=== PATIENT | female | born 1955 | race Caucasian/White ===

== ENCOUNTER 2016-12-21 13:01 | Emergency (ER) | payer BC ==
--- NOTE | 2016-12-21 14:21 | UC ---
Respiratory Complaint HPI - HPI Summary HPI Summary: Dx with pneumonia and rx with zithromax----has had no improvement in symptoms - History of Current Complaint Chief Complaint: UCRespiratory Stated Complaint: COUGH, AND CHEST CONGESTION Time Seen by Provider: 12/21/16 14:15 Hx Obtained From: Patient ?: No Onset/Duration: Gradual Onset, Lasting Weeks, Still Present Timing: Constant Severity Initially: Moderate Severity Currently: Moderate Character: Cough: Productive Aggravating Factors: Deep Breaths Alleviating Factors: Nothing Associated Signs And Symptoms: Positive: Negative, URI - Allergies/Home Medications Allergies/Adverse Reactions: Allergies Allergy/AdvReac Type Severity Reaction Status Date / Time Adhesive Tape Allergy Unknown Verified 12/21/16 13:20 Reaction Details Atorvastatin [From Lipitor] Allergy Unknown Verified 12/21/16 13:20 Reaction Details Hydrochlorothiazide Allergy Unknown Verified 12/21/16 13:20 [From Altace HCT] Reaction Details Iodinated Contrast Media Allergy Rash Verified 12/21/16 13:20 [CONTRAST DYE] Ramipril [From Altace HCT] Allergy Unknown Verified 12/21/16 13:20 Reaction Details Valsartan [From Diovan] Allergy Unknown Verified 12/21/16 13:20 Reaction Details NARCOTICS AdvReac Vomiting Uncoded 12/21/16 13:20 Home Medications: Home Medications Rosuvastatin Calcium [Crestor] 40 mg PO DAILY 12/21/16 [History Confirmed ] PMH/Surg Hx/FS Hx/Imm Hx Previously Healthy: No Endocrine History: Dyslipidemia Cardiovascular History: Cardiac Disease - Surgical History Surgical History: None Surgery Procedure, Year, and Place: 1998-LAPAROSCOPY +D+C-[facility]. 2004-CARDIAC HEART CATH - Family History Known Family History: Positive: Cardiac Disease - Social History Occupation: Employed Full-time Lives: With Family Alcohol Use: Occasionally Substance Use Type: None Smoking Status (MU): Never Smoked Tobacco Review of Systems Constitutional: Negative Skin: Negative Eyes: Negative ENT: Negative Respiratory: Cough Cardiovascular: Negative Gastrointestinal: Negative Genitourinary: Negative Motor: Negative Neurovascular: Negative Musculoskeletal: Negative Neurological: Negative Psychological: Negative All Other Systems Reviewed And Are Negative: Yes Physical Exam Triage Information Reviewed: Yes Appearance: Well-Appearing, No Pain Distress, Well-Nourished Vital Signs: Initial Vital Signs Temp 99.1 F 12/21/16 13:16 Pulse 78 12/21/16 13:16 Resp 18 12/21/16 13:16 Pulse Ox 98 12/21/16 13:16 Vital Signs Reviewed: Yes Eye Exam: Normal Eyes: Positive: Conjunctiva Clear ENT Exam: Normal ENT: Positive: Normal ENT inspection, Hearing grossly normal, Pharynx normal, TMs normal. Negative: Nasal congestion, Nasal drainage, Trismus, Muffled/ hoarse voice Dental Exam: Normal Neck exam: Normal Neck: Positive: Supple, Nontender, No Lymphadenopathy Respiratory Exam: Normal Respiratory: Positive: Chest non-tender, Lungs clear, Normal breath sounds, No respiratory distress, No accessory muscle use Cardiovascular Exam: Normal Cardiovascular: Positive: RRR, No Murmur, Pulses Normal, Brisk Capillary Refill Musculoskeletal Exam: Normal Musculoskeletal: Positive: Strength Intact, ROM Intact, No Edema Neurological Exam: Normal Neurological: Positive: Alert, Muscle Tone Normal Psychological Exam: Normal Skin Exam: Normal UC Diagnostic Evaluation - Laboratory O2 Sat by Pulse Oximetry: 98 - Radiology Xray Interpretation: No Acute Changes Radiology Interpretation Completed By: ED Physician - EKG Cardiac Rate: NL Cardiac Rhythm: Sinus: Normal Ectopy: None Respiratory Course/Dx - Course Course Of Treatment: Albuterol, robitussin increase fluids follow with pcp - Differential Dx/Diagnosis Differential Diagnosis/HQI/PQRI: Bronchitis, Laryngitis, Lower Resp Infection, Sinusitis Provider Diagnoses: Viral illness, Bronchitis Discharge - Discharge Plan Condition: Stable Disposition: HOME Prescriptions: Albuterol HFA INHALER* [Ventolin HFA Inhaler*] 2 puff INH Q4H PRN #1 mdi PRN Reason: cough chest congestion Patient Education Materials: Albuterol (By breathing), Acute Cough (ED) Referrals: Chapito Shahid MD [Primary Care Provider] - 1 Week
--- NOTE | 2016-12-21 15:02 | RAD ---
INDICATION: Cough, shortness of breath. History of pneumonia diagnosed last week. Negative for improvement on antibiotics. Coronary artery disease. COMPARISON: September 18, 2015 chest radiograph and November 29, 2006 CT. TECHNIQUE: Dual energy PA and routine lateral views of the chest were obtained. REPORT: Clear lungs and pleural spaces. Negative for pneumothorax. The heart, pulmonary vasculature, and mediastinal contours are unremarkable. Unremarkable osseous structures and soft tissue contours. IMPRESSION: No evidence for acute intrathoracic disease.
== END 2016-12-21 15:36 | disposition home or self-care (01) ==
LOC: UCEAST 13:01
DX: B34.8 Other viral infections of unspecified site (principal); J40 Bronchitis, not specified as acute or chronic; Z88.5 Allergy status to narcotic agent; Z91.041 Radiographic dye allergy status; E78.5 Hyperlipidemia, unspecified; I25.10 Atherosclerotic heart disease of native coronary artery without angina pectoris
CPT/HCPCS: 71020; 93005; 99212; G0463